=== PATIENT | male | born 1945 | race African-American/Black ===

== ENCOUNTER → 2017-07-15 | Outpatient (CLI) | payer MEDICARE, OTHER ==
[~2017-07-15] MED LIST: AMLO5TAB4 PO; BUPR100T7 PO; BUPR200T2 PO; CYCL1DRO EACHEYE; GABA-585 PO; HYDR-2762 PO; HYDR25TA9 PO; HYOS0.1265 SL; LATA2.5D3 EACHEYE; LIDO30CR TP; MAGIC MOUTHWASH PO; METH-38 PO; METO25TA9 PO; OMEP40CA5 PO; POLY10DR EACHEYE; PROC5TAB14 PO; SERT100T8 PO; SERT25TA4 PO; ZOLP5TAB PO
[2017-07-15 14:58] LABS: BASO % 0 % (0-3); EOS % 1 % (0-3); HEMATOCRIT 35.6 % (39.0-53.0); HEMOGLOBIN 12.4 g/dL (13.0-17.5); LYMPH # 1.4 x10^3/uL (1.0-4.8); LYMPH % 49 % (24-48); MEAN CORPUSCULAR HEMOGLOBIN 32 pg (25-35); MEAN CORPUSCULAR HGB CONC 35 g/dL (31-37); MEAN CORPUSCULAR VOLUME 92 fL (79-100); MONO % 9 % (0-9); NEUT % 40 % (31-73); PLATELET COUNT 163 x10^3/uL (140-400); RED BLOOD COUNT 3.87 x10^6/uL (4.30-5.70); RED CELL DISTRIBUTION WIDTH 12.8 % (11.5-14.5); WHITE BLOOD COUNT 2.8 x10^3/uL (4.0-11.0)
[2017-07-15 15:06] LABS: ALBUMIN 3.5 g/dL (3.4-5.0); ALBUMIN/GLOBULIN RATIO 1.1 (1.0-1.7); CALCIUM 9.1 mg/dL (8.5-10.1); CREATININE 0.9 mg/dL (0.7-1.3); GFR 100.7; TOTAL BILIRUBIN 0.3 mg/dL (0.2-1.0); TOTAL PROTEIN 6.7 g/dL (6.4-8.2)
--- NOTE | 2017-07-20 13:25 | HP ---
ADMIT DATE: Mark Stern dictating for Dr. Jason Alonzo. PREOP HISTORY AND PHYSICAL DATE OF SURGERY: 07/22/2017 HISTORY OF PRESENT ILLNESS: The patient is a 71-year-old man who is having difficulty with both his neck and lower back. With regard to his neck, he relates that he has problems with headache and neck pain. He says in the evenings when he reclines in his recliner, he develops neck pain that can radiate into the base of his skull and he develops the headache, which can be severe. This happens every afternoon and evening. He does not notice numbness or weakness in his upper extremities. Neck pain can radiate over his shoulders and to his upper posterior back. He also notices problems with lower back. He has pain virtually all of the time. That pain increases with activities. He says the walking distances can help him, although he really does that. He tries to avoid walking any distance. He develops pain with standing, pain in his lower back, which radiates into both of his thighs and legs. The pain can radiate into the anterior thighs and over the knees as well as the anterior lateral legs. The left side is more involved than the right. He feels that there is weakness in his left foot. He says that he walks differently to try to lift his left foot because of the weakness. He feels as though his problem started many years ago, but has worsened significantly in the recent years and months. He rates his pain overall in his lower back at a 3/10. His neck pain on average is a 4/10. He does have problems with prostate cancer with metastatic disease. He has been taking Lupron injections and has been doing very well with that. He says that he does have problems with unsteadiness. Especially in the mornings when he first gets up and gets active, he feels quite unsteady and feels that this problem improves as the day progresses. PAST MEDICAL HISTORY: Arthritis, cancer, headaches/migraines, head/neck injury, and hypertension. PAST SURGICAL HISTORY: Prostate surgery in 2016. FAMILY HISTORY: Diabetes and hypertension. SOCIAL HISTORY: Retired. . Exercises weekly. Denies substance abuse. Former light smoker. Former daily drinker. Drinks soda daily. ALLERGIES: No known drug allergies. CURRENT MEDICATIONS: Latanoprost, lidocaine, sertraline, prochlorperazine maleate, gabapentin, trimethoprim, ____, nystatin, ondansetron, lorazepam, hyoscyamine, ____, Vardenafil, aspirin 81 mg, zolpidem tartrate, hydrochlorothiazide, metoprolol, bupropion, ramipril, potassium, ____, ketoconazole, amlodipine, omeprazole, and cyclosporine. REVIEW OF SYSTEMS: A 12-point review of systems was obtained and is noncontributory except for that mentioned above. PHYSICAL EXAMINATION: NEUROSURGERY EXAMINATION: GENERAL APPEARANCE: Alert, pleasant, in no acute distress. HEAD: Normocephalic, atraumatic. SKIN: Warm and dry. MUSCULOSKELETAL: There was a mild tenderness in the posterior cervical region with palpation, especially at the base of the skull. There is reduced range of motion of the cervical spine in all direction. Lumbar paraspinal muscle bulk is normal, restricted range of motion of lumbar spine, [id number] tenderness of the lower lumbar spine with palpation, normal range of motion of the lower extremities bilaterally. EXTREMITIES: No clubbing, cyanosis, or edema. NEUROLOGIC: Alert and oriented x3, normal recent and remote memory, strength 5/5 in bilateral upper and lower extremities except for his left EHL, which was a 4+/5, sensory was intact to light touch in bilateral upper and lower extremities, reflexes were trace and symmetric in the upper and absent in the lower extremities bilaterally. There are no pathologic reflexes. Negative straight leg raising bilaterally, abnormal gait with mild left foot drop. He was unsteady and unable to tandem walk. IMAGING: Reviewed. I reviewed his cervical MRI scan as well as lumbar MRI. On the cervical study, there was moderately severe cervical spondylosis present. The cervical spinal cord was normal in size and signal throughout. There was evidence of cervical stenosis at C3-C4, C4-C5, C5-C6, and to a lesser extent at C6-C7. At C4-C5, the stenosis more pronounced with moderately severe stenosis at this level. The overall alignment of the cervical spine was satisfactory. On the lumbar MRI scan, there is severe central canal stenosis present at L2-L3 and L3-L4 with clumping of nerve roots. ASSESSMENT: 1. Spinal stenosis, cervical region. 2. Spinal stenosis, lumbar region. PLAN: He has a number of problems with the spine and moderately severe cervical spinal stenosis primarily at C4-C5 and severe lumbar spinal stenosis at L2-L3 and L3-L4. He is unsteady with his walking as well as has the left foot drop. After reviewing his films the second time, I felt the best course would be to proceed with lumbar surgery to decompress the spinal cord at L2-L3 and L3-L4. Certainly, this will require diskectomy at L2-L3. He will require significant bilateral micro hemilaminotomy/laminectomies at both of these levels to obtain an adequate decompression. After surgery, it depends on how he progresses. If he continues to have problems with unsteadiness, a cervical spine exam will also need to be addressed. I did discuss all of this with him in detail. I spoke with him about the surgery and the risks involved. He understands. He would like to go ahead with surgery. We will make the arrangements. JASON ALONZO MD DR: ANGELA/debora JOB#: [id number] / [id number]
== END | disposition home or self-care (01) ==
LOC: SURGPAT 13:24
PROVIDERS: ATTEND Neurological Surgery
DX: M48.06 Spinal stenosis, lumbar region (principal); M48.02 Spinal stenosis, cervical region
CPT/HCPCS: 36415; 80053; 85025; 87641

== ENCOUNTER 2017-07-22 06:57 | Observation (INO) | payer MEDICARE, OTHER ==
[~2017-07-22] VITALS: Ht 188 cm; Wt 105.7 kg
[~2017-07-22 06:57] MED LIST changes: +BACITRACIN 50,000 UNIT in IV NORMAL SALINE 1000ML BAG 1,000 ML IRR ONE; -HYDR-2762 PO; -METH-38 PO; +METO-239 PO; -METO25TA9 PO
[2017-07-22] MEDS ORDERED: PROCHLORPERAZINE 10 MG/2 ML VIAL. IV PRN (07:00)
[2017-07-22] MEDS ORDERED: fentaNYL PF VIAL 100 MCG/2 ML VIAL IV PRN (07:00)
[2017-07-22] MEDS ORDERED: IV RINGERS,LACTATED 1000ML 1,000 ML IV SCH (07:00)
[2017-07-22] MEDS ORDERED: LIDOCAINE 1% 1 ML SYRINGE. ID PRN (07:00)
[2017-07-22] MEDS ORDERED: ONDANSETRON PF 4 MG/2 ML VIAL. IV PRN (07:00)
[2017-07-22] MEDS ORDERED: 0.9 % SODIUM CHLORIDE 50 ML VIAL. IJ ONE (07:17)
[2017-07-22] MEDS ORDERED: PROPOFOL 50 ML IV ONE ×3 (07:17→12:12)
[2017-07-22] MEDS ORDERED: PROPOFOL 20 ML IV ONE ×2 (07:17→09:14)
[2017-07-22] MEDS ORDERED: fentaNYL PF VIAL 100 MCG/2 ML VIAL ONE ×3 (07:18→13:36)
[2017-07-22] MEDS ORDERED: LIDOCAINE 2% PF Vial for OR 5 ML VIAL. ONE (07:18)
[2017-07-22] MEDS ORDERED: REMIFENTANIL 2 MG VIAL. IV ONE (07:18)
[2017-07-22] MEDS ORDERED: BUPIVAC MPF-EPI 0.5%-1:200000 30 ML VIAL. ONE (07:30)
[2017-07-22] MEDS ORDERED: THROMBIN TOPICAL 20,000 UNIT SPRAY.SYRN KIT TP ONE (07:31)
[2017-07-22] MEDS ORDERED: GELATIN SPONGE SIZE 100. ONE (07:31)
[2017-07-22] MEDS ORDERED: KETOROLAC 60 MG/2 ML INJ FOR OR. ONE (07:31)
[2017-07-22] MEDS ORDERED: DEXAMETHASONE SOD PHOS 20 MG/5 ML VIAL. ONE (09:14)
[2017-07-22] MEDS ORDERED: DESFLURANE > 120 MINUTES IH ONE (09:14)
[2017-07-22] MEDS ORDERED: ePHEDrine PF IN SALINE 50 MG/5 ML DISP.SYRIN IV ONE (09:28)
[2017-07-22] MEDS ORDERED: PHENYLEPHRINE 10 MG/ML VIAL. ONE (09:36)
[2017-07-22] MEDS ORDERED: GLYCOPYRROLATE 1 MG/5 ML VIAL. ONE (09:37)
[2017-07-22] MEDS ORDERED: ONDANSETRON PF 4 MG/2 ML VIAL. ONE (10:17)
[2017-07-22] MEDS: fentaNYL PF VIAL 100 MCG/2 ML VIAL IV PRN ×4 (13:20→14:02)
[2017-07-22] MEDS ORDERED: MORPHINE SULFATE 2 MG/ML DISP.SYRIN. ONE (13:36)
[2017-07-22] MEDS: MORPHINE SULFATE 2 MG/ML DISP.SYRIN. IV PRN ×2 (13:40→14:03)
[2017-07-22] MEDS ORDERED: HYDROmorphone 2 MG/ML VIAL ONE (14:12)
[2017-07-22] MEDS: HYDROmorphone 2 MG/ML VIAL IV PRN ×2 (14:17→14:30)
[2017-07-22 15:30] VITALS: BP 129/65
[2017-07-22] MEDS: POLYMYXIN/TRIMETHOPRIM OPHTH SOLUTION 10ML BOTTLE. OU SCH ×2 (17:41→23:40)
[2017-07-22] MEDS: HYDROcodone/APAP 7.5/325MG 1 TAB TABLET PO PRN ×2 (17:41→22:00)
[2017-07-22] MEDS: PROCHLORPERAZINE 5 MG TABLET. PO SCH ×2 (17:42→23:58)
[2017-07-22 19:00] VITALS: BP 108/65
[2017-07-22] MEDS: buPROPion SR 100 MG TABLET.SA. PO SCH (21:00)
[2017-07-22] MEDS ORDERED: LATANOPROST 0.005% OPHTH SOLUTION 2.5ML BOTTLE. OU SCH (21:00)
[2017-07-22] MEDS: GABAPENTIN 100 MG CAPSULE. PO SCH (21:00)
[2017-07-22] MEDS: cycloSPORINE 0.05% OPTH 1 DROP DROPERETTE OU SCH (21:00)
[2017-07-22] MEDS ORDERED: ZOLPIDEM 5 MG TABLET. PO SCH (21:00)
[2017-07-22 23:00] VITALS: BP 109/60
[2017-07-22] MEDS: ACETAMINOPHEN 325 MG TABLET. PO PRN (23:49)
[2017-07-23 03:23] VITALS: BP 103/71
[2017-07-23] MEDS: HYDROcodone/APAP 7.5/325MG 1 TAB TABLET PO PRN ×2 (05:38→13:10)
[2017-07-23] MEDS: POLYMYXIN/TRIMETHOPRIM OPHTH SOLUTION 10ML BOTTLE. OU SCH ×2 (05:40→12:00)
[2017-07-23] MEDS: PROCHLORPERAZINE 5 MG TABLET. PO SCH ×2 (05:40→12:00)
[2017-07-23 07:00] VITALS: BP 132/78
[2017-07-23] MEDS ORDERED: PANTOPRAZOLE 40 MG TABLET.DR. PO SCH (07:30)
[2017-07-23] MEDS ORDERED: amLODIPine BESYLATE 5 MG TABLET PO SCH (09:00)
[2017-07-23] MEDS ORDERED: SERTRALINE 25 MG TABLET. PO SCH (09:00)
[2017-07-23] MEDS ORDERED: BUPROPION HCL 200 MG PO SCH (09:00)
[2017-07-23] MEDS ORDERED: METOPROLOL SUCC 24HR ER 25 MG TAB.ER.24H. PO SCH (09:00)
[2017-07-23] MEDS ORDERED: SERTRALINE 50 MG TABLET. PO SCH (09:00)
[2017-07-23] MEDS ORDERED: LIDOCAINE/PRILOCAINE TOPICAL CREAM 5GM TUBE. TP SCH (09:00)
[2017-07-23] MEDS ORDERED: hydroCHLOROthiazide 25 MG TABLET PO SCH (09:00)
[2017-07-23] MEDS: cycloSPORINE 0.05% OPTH 1 DROP DROPERETTE OU SCH (09:05)
[2017-07-23] MEDS: buPROPion SR 100 MG TABLET.SA. PO SCH (09:06)
[2017-07-23] MEDS: GABAPENTIN 100 MG CAPSULE. PO SCH ×2 (09:06→14:13)
[2017-07-23] MEDS: ACETAMINOPHEN 325 MG TABLET. PO PRN (09:31)
[2017-07-23 11:00] VITALS: BP 98/42
--- NOTE | 2017-07-23 11:53 | DISCH ---
DISCHARGE INSTRUCTIONS Condition on Discharge Condition on Discharge: Stable Activity After Discharge Activity Instructions for Disc: Activity as tolerated, Avoid exertion Other activity instructions: no driving for a week Bathing Instructions: Shower-keep dressing dry Lifting Instructions after Dis: No heavy lifting, No pulling or pushing, Do not lift >10 pounds Diet after Discharge Additional Diet Restrictions: resume home diet Wound Incision Care Wound/Incision Care: Ice to area for comfort Other wound/incision instructi: may remove dressing when dry then may shower- no soaking Contacting the after DC Call your doctor for: Concerns you may have Follow-Up Follow up with: with Dr. Alonzo's nurse in 2 weeks [phone] CRISTHIAN ALONZO MD Jul 23, 2017 11:53
[2017-07-23] MEDS ORDERED: METH-38 PO (11:56)
[2017-07-23] MEDS ORDERED: HYDR-2762 PO (11:56)
--- NOTE | 2017-07-23 11:58 | PDOC ---
PROGRESS NOTES Subjective Subjective POD #1 doing well legs feel better c/o ROMANO Objective Objective Vital Signs Date Time Temp Pulse Resp B/P (MAP) Pulse Ox O2 Delivery O2 Flow Rate FiO2 07/23/17 11:00 99.8 70 18 98/42 (60) 98 Room Air 99.8 07/22/17 20:00 2.0 Physical Exam General: Alert, Oriented X3, Cooperative MUSCULOSKELETAL: Other (MCCORMICK) Neuro: Normal speech Skin: Other (dressing changed, minimal oozing noted) Plan Plan of Care dc home f/u 2 weeks Comment Review of Relevant I have reviewed the following items zain (where applicable) has been applied. Medications Current Medications Ondansetron HCl (Zofran) 4 mg PRN Q6HRS PRN IV NAUSEA/VOMITING; Start 07/22/17 at 07:00; Stop 07/23/17 at 06:59; Status DC Fentanyl Citrate (Fentanyl 2ml Vial) 25 mcg PRN Q5MIN PRN IV MILD PAIN; Start 07/22/17 at 07:00; Stop 07/23/17 at 06:59; Status DC Fentanyl Citrate (Fentanyl 2ml Vial) 50 mcg PRN Q5MIN PRN IV MODERATE PAIN Last administered on 07/22/17 13:50; Start 07/22/17 at 07:00; Stop 07/23/17 at 06: 59; Status DC Morphine Sulfate 1 mg PRN Q10MIN PRN IV SEVERE PAIN Last administered on 13:40; Start 07/22/17 at 07:00; Stop 07/23/17 at 06:59; Status DC Ringer's Solution 1,000 ml @ 30 mls/hr Q24H IV Last administered on 07/22/17 07:50; Start 07/22/17 at 07:00; Stop 07/22/17 at 18:59; Status DC Lidocaine HCl 2 ml PRN 1X PRN ID PRIOR TO IV START; Start 07/22/17 at 07:00; Stop 07/23/17 at 06:59; Status DC Hydromorphone HCl (Dilaudid) 0.5 mg PRN Q10MIN PRN IV SEV PAIN, Second choice Last administered on 07/22/17 14:30; Start 07/22/17 at 07:00; Stop 07/23/17 at 06: 59; Status DC Prochlorperazine Edisylate (Compazine) 5 mg PACU PRN PRN IV NAUSEA, MRX1; Start 07/22/17 at 07:00; Stop 07/23/17 at 06:59; Status DC Cefazolin Sodium/ Dextrose 50 ml @ 100 mls/hr 1X ONCE IV Last administered on 07/22/17 09:18; Start 07/22/17 at 06:00; Stop 07/22/17 at 06:29; Status DC Bacitracin 12135 unit/Sodium Chloride 1,000 ml @ 1,000 mls/hr 1X PERIOP ONCE IRR Last administered on 07/22/17 09:47; Start 07/22/17 at 06:00; Stop 07/22/17 at 06:59; Status DC Propofol 50 ml @ As Directed STK-MED ONCE IV ; Start 07/22/17 at 07:17; Stop 07/22 at 07:18; Status DC Propofol 20 ml @ As Directed STK-MED ONCE IV ; Start 07/22/17 at 07:17; Stop 07/22 at 07:18; Status DC Sodium Chloride (Sodium Chloride) 50 ml STK-MED ONCE IJ ; Start 07/22/17 at 07:17 ; Stop 07/22/17 at 07:18; Status DC Remifentanil HCl (Ultiva) 2 mg STK-MED ONCE IV ; Start 07/22/17 at 07:18; Stop at 07:19; Status DC Fentanyl Citrate (Fentanyl 2ml Vial) 100 mcg STK-MED ONCE .ROUTE ; Start at 07:18; Stop 07/22/17 at 07:19; Status DC Lidocaine HCl (Lidocaine Pf 2% Vial) 5 ml STK-MED ONCE .ROUTE ; Start 07/22/17 at 07:18; Stop 07/22/17 at 07:19; Status DC Bupivacaine HCl/ Epinephrine Bitart (Sensorcain-Mpf Epi 0.5%-1:174460) 30 ml STK -MED ONCE .ROUTE Last administered on 07/22/17 09:47; Start 07/22/17 at 07:30; Stop 07/22/17 at 07:31; Status DC Gelatin (Gelfoam Size 100) 1 each STK-MED ONCE .ROUTE Last administered on 07/22 09:47; Start 07/22/17 at 07:31; Stop 07/22/17 at 07:32; Status DC Ketorolac Tromethamine (Toradol For Or Only) 60 mg STK-MED ONCE .ROUTE Last administered on 07/22/17 09:47; Start 07/22/17 at 07:31; Stop 07/22/17 at 07:32; Status DC Thrombin 20,000 unit STK-MED ONCE TP Last administered on 07/22/17 09:47; Start 07/22/17 at 07:31; Stop 07/22/17 at 07:32; Status DC Dexamethasone Sodium Phosphate (Decadron) 20 mg STK-MED ONCE .ROUTE ; Start 07/22 at 09:14; Stop 07/22/17 at 09:15; Status DC Propofol 20 ml @ As Directed STK-MED ONCE IV ; Start 07/22/17 at 09:14; Stop 07/22 at 09:15; Status DC Desflurane (Suprane) 90 ml STK-MED ONCE IH ; Start 07/22/17 at 09:14; Stop at 09:15; Status DC Ephedrine Sulfate 50 mg STK-MED ONCE IV ; Start 07/22/17 at 09:28; Stop 07/22/17 at 09:29; Status DC Phenylephrine HCl (Thaddeus-Synephrine Inj) 10 mg STK-MED ONCE .ROUTE ; Start at 09:36; Stop 07/22/17 at 09:37; Status DC Glycopyrrolate (Robinul) 1 mg STK-MED ONCE .ROUTE ; Start 07/22/17 at 09:37; Stop 07/22/17 at 09:38; Status DC Ondansetron HCl (Zofran) 4 mg STK-MED ONCE .ROUTE ; Start 07/22/17 at 10:17; Stop 07/22/17 at 10:18; Status DC Propofol 50 ml @ As Directed STK-MED ONCE IV ; Start 07/22/17 at 10:18; Stop 07/22 at 10:19; Status DC Propofol 50 ml @ As Directed STK-MED ONCE IV ; Start 07/22/17 at 12:12; Stop 07/22 at 12:13; Status DC Fentanyl Citrate (Fentanyl 2ml Vial) 100 mcg STK-MED ONCE .ROUTE ; Start at 12:55; Stop 07/22/17 at 12:56; Status DC Fentanyl Citrate (Fentanyl 2ml Vial) 100 mcg STK-MED ONCE .ROUTE ; Start at 13:36; Stop 07/22/17 at 13:37; Status DC Morphine Sulfate 2 mg STK-MED ONCE .ROUTE ; Start 07/22/17 at 13:36; Stop at 13:37; Status DC Amlodipine Besylate (Norvasc) 5 mg DAILY PO Last administered on 07/23/17 09:06 ; Start 07/23/17 at 09:00 Bupropion HCl (Wellbutrin Sr) 100 mg BID PO Last administered on 07/23/17 09:06 ; Start 07/22/17 at 21:00 Cyclosporine (Restasis) 1 drop BID OU Last administered on 07/23/17 09:05; Start 07/22/17 at 21:00 Gabapentin (Neurontin) 100 mg TID PO Last administered on 07/23/17 09:06; Start 07/22/17 at 21:00 Hydrochlorothiazide (Hydrodiuril) 25 mg DAILY PO Last administered on 07/23/17 09:06; Start 07/23/17 at 09:00 Latanoprost (Xalatan) 1 drop QHS OU ; Start 07/22/17 at 21:00 Lidocaine/ Prilocaine (Emla) 1 zeeshan DAILY TP ; Start 07/23/17 at 09:00 Metoprolol Succinate (Toprol Xl) 25 mg DAILY PO Last administered on 07/23/17 09:06; Start 07/23/17 at 09:00 Polymyxin/ Trimethoprim Sulfate (Polytrim) 1 drop Q6HRS OU ; Start 07/22/17 at 18 :00 Prochlorperazine Maleate (Compazine) 10 mg Q6HRS PO ; Start 07/22/17 at 18:00 Sertraline HCl (Zoloft) 25 mg DAILY PO Last administered on 07/23/17 09:07; Start 07/23/17 at 09:00 Zolpidem Tartrate (Ambien) 5 mg QHS PO ; Start 07/22/17 at 21:00 Non-Formulary Medication 200 mg DAILY PO ; Start 07/23/17 at 09:00; Status UNV Pantoprazole Sodium (Protonix) 40 mg DAILYAC PO Last administered on 07/23/17 06:37; Start 07/23/17 at 07:30 Sertraline HCl (Zoloft) 100 mg DAILY PO ; Start 07/23/17 at 09:00; Status UNV Hydromorphone HCl (Dilaudid) 2 mg STK-MED ONCE .ROUTE ; Start 07/22/17 at 14:12; Stop 07/22/17 at 14:13; Status DC Acetaminophen/ Hydrocodone Bitart (Lortab 7.5/325) 1 tab PRN Q4HRS PRN PO PAIN Last administered on 07/23/17 05:38; Start 07/22/17 at 17:30 Acetaminophen (Tylenol) 650 mg PRN Q6HRS PRN PO HEADACHE Last administered on 09:31; Start 07/22/17 at 23:45 Active Scripts Active Reported Levsin-Sl (Hyoscyamine Sulfate) 0.125 Mg Tab.subl 0.125 Mg SL Restasis (Cyclosporine) 1 Each Droperette 1 Drop EACHEYE BID Omeprazole 40 Mg Capsule.dr 1 Cap PO DAILY Norvasc (Amlodipine Besylate) 5 Mg Tablet 1 Tab PO DAILY Wellbutrin Sr (Bupropion Hcl) 200 Mg Tablet.er 200 Mg PO DAILY Wellbutrin Sr (Bupropion Hcl) 100 Mg Tablet.er 1 Tab PO BID Metoprolol Succinate ( Xl ) (Metoprolol Succinate) 25 Mg Tab.er.24h 1 Tab PO DAILY Hydrochlorothiazide Tablet (Hydrochlorothiazide) 25 Mg Tablet 1 Tab PO DAILY Ambien (Zolpidem Tartrate) 5 Mg Tablet 1 Tab PO QHS [Magic Mouthwash] 1 PO Polytrim Eye Drops (Polymyxin B Sulf/Trimethoprim) 10 Ml Drops 1 Drop EACHEYE Q6HRS Gabapentin 100 Mg Capsule 100 Mg PO TID Prochlorperazine Maleate 10 Mg Tablet 1 Tab PO Q6HRS Sertraline Hcl 100 Mg Tablet 100 Mg PO DAILY Sertraline Hcl 25 Mg Tablet 25 Mg PO DAILY Lidocaine-Prilocaine Cream (Lidocaine/Prilocaine) 30 Gm Cream..g. 1 Zeeshan TP UD Latanoprost 2.5 Ml Drops 1 Drop EACHEYE [facility] Vitals/I & O Vital Sign - Last 24 Hours 07/22/17 07/22/17 07/22/17 07/22/17 13:12 13:12 13:20 13:27 Temp 99.0 99.0 99.0 99.0 Pulse 58 70 Resp 15 15 15 B/P (MAP) 97/49 107/60 Pulse Ox 96 98 92 O2 Delivery Room Air Room Air Room Air Room Air O2 Flow Rate 2.0 07/22/17 07/22/17 07/22/17 07/22/17 13:40 13:40 13:42 13:50 Temp 99.0 99.0 Pulse 56 Resp 15 15 15 B/P (MAP) 104/64 Pulse Ox 98 98 96 98 O2 Delivery Room Air Room Air Nasal Cannula Room Air O2 Flow Rate 2.0 2.0 2 2.0 07/22/17 07/22/17 07/22/17 07/22/17 13:57 14:02 14:03 14:12 Temp 99.0 99.0 99.0 99.0 Pulse 61 75 Resp 15 15 15 15 B/P (MAP) 104/64 114/90 Pulse Ox 98 98 98 100 O2 Delivery Nasal Cannula Room Air Room Air Nasal Cannula O2 Flow Rate 2 2.0 2.0 2.0 07/22/17 07/22/17 07/22/17 07/22/17 14:17 14:27 14:30 15:10 Temp 99.0 99.0 Pulse 77 Resp 15 15 15 B/P (MAP) 114/69 Pulse Ox 98 100 100 O2 Delivery Room Air Nasal Cannula Room Air Nasal Cannula O2 Flow Rate 2.0 2.0 2.0 2.0 07/22/17 07/22/17 07/22/17 07/22/17 15:30 17:41 19:00 20:00 Temp 98.5 100.4 98.5 100.4 Pulse 63 85 Resp 16 20 B/P (MAP) 129/65 (86) 108/65 (79) Pulse Ox 99 99 94 O2 Delivery Nasal Cannula Room Air Room Air Room Air O2 Flow Rate 2.0 07/22/17 07/22/17 07/22/17 07/22/17 20:00 22:00 23:00 23:00 Temp 98.1 98.1 Pulse 72 Resp 18 20 18 B/P (MAP) 109/60 (76) Pulse Ox 94 96 O2 Delivery Nasal Cannula Nasal Cannula Room Air O2 Flow Rate 2.0 07/23/17 07/23/17 07/23/17 07/23/17 03:23 05:38 06:35 07:00 Temp 97.9 99.5 97.9 99.5 Pulse 71 65 Resp 20 18 18 B/P (MAP) 103/71 (82) 132/78 (96) Pulse Ox 97 97 99 O2 Delivery Room Air Room Air Room Air Room Air 07/23/17 07/23/17 07/23/17 09:06 09:06 11:00 Temp 99.8 99.8 Pulse 65 65 70 Resp 18 B/P (MAP) 132/78 132/78 98/42 (60) Pulse Ox 98 O2 Delivery Room Air CRISTHIAN ALONZO MD Jul 23, 2017 11:58
[2017-07-23] MEDS ORDERED: ASA/APAP/CAFFEINE 250/250/65MG TABLET. PO PRN (12:00)
--- NOTE | 2017-07-23 17:37 | HP ---
ADMIT DATE: Mark Stern dictating for Dr. Jason Alonzo. PREOP HISTORY AND PHYSICAL DATE OF SURGERY: 07/22/2017 HISTORY OF PRESENT ILLNESS: The patient is a 71-year-old man who is having difficulty with both his neck and lower back. With regard to his neck, he relates that he has problems with headache and neck pain. He says in the evenings when he reclines in his recliner, he develops neck pain that can radiate into the base of his skull and he develops the headache, which can be severe. This happens every afternoon and evening. He does not notice numbness or weakness in his upper extremities. Neck pain can radiate over his shoulders and to his upper posterior back. He also notices problems with lower back. He has pain virtually all of the time. That pain increases with activities. He says the walking distances can help him, although he really does that. He tries to avoid walking any distance. He develops pain with standing, pain in his lower back, which radiates into both of his thighs and legs. The pain can radiate into the anterior thighs and over the knees as well as the anterior lateral legs. The left side is more involved than the right. He feels that there is weakness in his left foot. He says that he walks differently to try to lift his left foot because of the weakness. He feels as though his problem started many years ago, but has worsened significantly in the recent years and months. He rates his pain overall in his lower back at a 3/10. His neck pain on average is a 4/10. He does have problems with prostate cancer with metastatic disease. He has been taking Lupron injections and has been doing very well with that. He says that he does have problems with unsteadiness. Especially in the mornings when he first gets up and gets active, he feels quite unsteady and feels that this problem improves as the day progresses. PAST MEDICAL HISTORY: Arthritis, cancer, headaches/migraines, head/neck injury, and hypertension. PAST SURGICAL HISTORY: Prostate surgery in 2016. FAMILY HISTORY: Diabetes and hypertension. SOCIAL HISTORY: Retired. . Exercises weekly. Denies substance abuse. Former light smoker. Former daily drinker. Drinks soda daily. ALLERGIES: No known drug allergies. CURRENT MEDICATIONS: Latanoprost, lidocaine, sertraline, prochlorperazine maleate, gabapentin, trimethoprim, ____, nystatin, ondansetron, lorazepam, hyoscyamine, ____, Vardenafil, aspirin 81 mg, zolpidem tartrate, hydrochlorothiazide, metoprolol, bupropion, ramipril, potassium, ____, ketoconazole, amlodipine, omeprazole, and cyclosporine. REVIEW OF SYSTEMS: A 12-point review of systems was obtained and is noncontributory except for that mentioned above. PHYSICAL EXAMINATION: NEUROSURGERY EXAMINATION: GENERAL APPEARANCE: Alert, pleasant, in no acute distress. HEAD: Normocephalic, atraumatic. SKIN: Warm and dry. MUSCULOSKELETAL: There was a mild tenderness in the posterior cervical region with palpation, especially at the base of the skull. There is reduced range of motion of the cervical spine in all direction. Lumbar paraspinal muscle bulk is normal, restricted range of motion of lumbar spine, [id number] tenderness of the lower lumbar spine with palpation, normal range of motion of the lower extremities bilaterally. EXTREMITIES: No clubbing, cyanosis, or edema. NEUROLOGIC: Alert and oriented x3, normal recent and remote memory, strength 5/5 in bilateral upper and lower extremities except for his left EHL, which was a 4+/5, sensory was intact to light touch in bilateral upper and lower extremities, reflexes were trace and symmetric in the upper and absent in the lower extremities bilaterally. There are no pathologic reflexes. Negative straight leg raising bilaterally, abnormal gait with mild left foot drop. He was unsteady and unable to tandem walk. IMAGING: Reviewed. I reviewed his cervical MRI scan as well as lumbar MRI. On the cervical study, there was moderately severe cervical spondylosis present. The cervical spinal cord was normal in size and signal throughout. There was evidence of cervical stenosis at C3-C4, C4-C5, C5-C6, and to a lesser extent at C6-C7. At C4-C5, the stenosis more pronounced with moderately severe stenosis at this level. The overall alignment of the cervical spine was satisfactory. On the lumbar MRI scan, there is severe central canal stenosis present at L2-L3 and L3-L4 with clumping of nerve roots. ASSESSMENT: 1. Spinal stenosis, cervical region. 2. Spinal stenosis, lumbar region. PLAN: He has a number of problems with the spine and moderately severe cervical spinal stenosis primarily at C4-C5 and severe lumbar spinal stenosis at L2-L3 and L3-L4. He is unsteady with his walking as well as has the left foot drop. After reviewing his films the second time, I felt the best course would be to proceed with lumbar surgery to decompress the spinal cord at L2-L3 and L3-L4. Certainly, this will require diskectomy at L2-L3. He will require significant bilateral micro hemilaminotomy/laminectomies at both of these levels to obtain an adequate decompression. After surgery, it depends on how he progresses. If he continues to have problems with unsteadiness, a cervical spine exam will also need to be addressed. I did discuss all of this with him in detail. I spoke with him about the surgery and the risks involved. He understands. He would like to go ahead with surgery. We will make the arrangements. JASON ALONZO MD DR: ANGELA/debora JOB#: [id number] / [id number]
--- NOTE | 2017-07-28 15:32 | PATHOLOGY ---
PATHOLOGY REPORT * * * * * * * * FINAL DIAGNOSIS: Fibrocartilaginous tissue and bone, "lumbar decompression and disc": - Fibrocartilaginous tissue consistent with disc material. (SHA:; 07/28/2017) REPORT ELECTRONICALLY SIGNED BY: Werner Looney M.D. DATE/TIME: 07/28/2017 15:31 * * * * * * * * GROSS PATHOLOGY: Received in formalin labeled "Ryan Tapia, lumbar decompression and disc," are several pieces of glistening, fibrous tissue measuring 6.3 x 4.5 x 0.8 cm in aggregate dimensions including multiple fragments of pale wang bone. The tissue is submitted representatively in cassette A1, following decalcification. (DAC; 07/27/2017) INITIAL CPT CODE(S): A; 45597, 53679 Professional services performed [place] [facility] [place] [address] Technical services performed by [facility] at [address] [place] [address], [facility] [address] [address]. SPECIMEN(S) RECEIVED: A.Lumbar decompression and disc CLINICAL HISTORY: Lumbar stenosis PATIENT: RYAN TAPIA /AGE: 1210/24/1945 (Age: 71) PATIENT #: [id number] ALT CASE #: SPECIMEN COLLECTION DATE: 07/22/2017 SPECIMEN RECEIVED DATE: 07/26/2017 [facility] - [address] [place] [address] - PHONE: [phone] * * * END OF REPORT * * *
--- NOTE | 2017-07-28 20:21 | OP ---
DATE OF SURGERY: 07/22/2017 PREOPERATIVE DIAGNOSES: Lumbar spinal stenosis, L2-L3 and L3-L4 with neurogenic claudication. POSTOPERATIVE DIAGNOSES: Lumbar spinal stenosis, L2-L3 and L3-L4 with neurogenic claudication. OPERATION PERFORMED: 1. Bilateral hemilaminotomies with decompression of dura and nerve root, L2-L3, L3-L4. 2. Lumbar microdiskectomy, left L2-L3. The operation was done with EMG monitoring, fluoroscopy, microscopic dissection. APPLICATION SUPPORT CONSULTANT: MAGDALENA Parker, assisted with the surgery, she assisted with the exposure, the decompression, diskectomy as well as the closure. OPERATIVE INDICATIONS: The patient is a very pleasant 71-year-old man who developed intractable back pain and pain, which radiates into both of his lower extremities. He failed conservative measures and I recommended lumbar microdecompressive surgery. I spoke with him about the surgery and the risks involved and outlined the technique. I explained that there was anterolisthesis and I was concerned about the possibility of destabilization with a wide laminectomy and felt that the most prudent course would be to perform focal microdecompressive operations bilaterally at both levels. He understood the rationale, he understood the surgery, the risks, the technique and he wished to go ahead. DESCRIPTION OF PROCEDURE: Following general endotracheal anesthesia, the patient was placed in the prone position on the Gilmer table. His lumbar region was prepped and draped in the standard fashion. REANNA hose and AV impulse boots were applied for DVT prophylaxis. The microscope was draped. Fluoroscopy was draped and brought into field. Monitoring was established. Ancef 2 grams were given less than 1 hour prior to initiation of the surgery. Using fluoroscopic guidance, incision was made from L2-L3 to L3-L4, dissected down through the skin and subcutaneous tissue. I reflected the paraspinal muscles first on the left side and placed a [place] micro disk retractor. I directed my attention to L2-L3. I brought in the microscope and using the high speed air drill, I burred down a very generous hemilaminotomy. I then worked superiorly, laterally and exposed the ligamentum flavum and then performed a partial foraminotomy. Again, with a high speed air drill and at this point began to use the 2.5-mm feeling Kerrison's. I freed up the very thickened ligamentum flavum from the shelving edge of the superior lamina, freed this and peeled the ligament down and laterally and then trimmed the ligament inferiorly, again peeling it from medial to lateral. I removed the ligamentum flavum exposing the dura and the exiting root and I did enlarge the foraminotomy. I gently retracted the root medially, it was lifted by a large bulging disk and I entered into the disk space with a #11 blade, holding the root gently medially with a micro nerve root retractor. I incised the annulus and ligament and I performed a diskectomy with pituitary rongeurs and as I worked, I removed multiple disk fragments and fully decompressed the entire region. At this point, I explored carefully, the area was very well decompressed. I did use small amounts of bone wax during the operation as well as bipolar cautery where necessary. I was quite pleased with the appearance at this level and I went down to L3-L4 and in a similar fashion, performed a lumbar hemilaminotomy and decompressed the dura and the exiting root, again peeling away the thickened ligamentum flavum. At this level, there was some disk bulging, but the disk was firm and no diskectomy was warranted and after the decompression at this level and I switched to the right side, in a similar fashion, first at L2-L3, performed a decompression. The disk on this side was flat at this point, no diskectomy was warranted after I had exposed the dura and the exiting roots, and then I performed the identical operation at L3-L4 on the right. I irrigated both sides then copiously after removing the retractor. I obtained hemostasis in the muscle bilaterally. I felt that that I had an excellent decompression. There were no difficulties with the monitoring throughout the operation and at this point, I felt that the patient would do well. I irrigated copiously. I closed the fascia with absorbable sutures followed by the subcutaneous tissue and the skin was closed with a 4-0 subcuticular stitch. I felt the surgery went very well. The patient was awakened uneventfully, taken to recovery room in excellent condition with normal strength in his lower extremities. I was quite pleased with the surgery. CRISTHIAN ALONZO MD DR: ANGELA/debora JOB#: [id number] / [id number]
== END 2017-07-23 14:20 | disposition home or self-care (01) ==
LOC: SURG 06:57 → EDUNIT# 08:30 → 4 NORTH 14:23
PROVIDERS: ADMIT Neurological Surgery; ATTEND Neurological Surgery
DX: M48.02 Spinal stenosis, cervical region (principal); M48.06 Spinal stenosis, lumbar region; M21.372 Foot drop, left foot; M19.90 Unspecified osteoarthritis, unspecified site; G43.909 Migraine, unspecified, not intractable, without status migrainosus; I10 Essential (primary) hypertension; C61 Malignant neoplasm of prostate; Z87.891 Personal history of nicotine dependence; Z83.3 Family history of diabetes mellitus; Z82.49 Family history of ischemic heart disease and other diseases of the circulatory system
CPT/HCPCS: 63047; 63048; 76000; G0378; G0379; J0690; J1100; J1170; J1885; J2270; J2405; J2704; J3010; J3490; J7030; J7120; 88304; 88311; J2001